=== PATIENT | female | born 1995 | race Caucasian/White ===

== ENCOUNTER → 2019-03-11 | Outpatient (CLI) | payer OTHER | LOC: LAB.O 10:12 | PROVIDERS: ATTEND Registered Nurse General Practice | DX: K92.0 Hematemesis (principal) ==

== ENCOUNTER → 2019-03-12 | Outpatient (CLI) | payer OTHER ==
--- NOTE | 2019-03-12 14:00 | CT ---
EXAM DESCRIPTION: Abdomen/Pelvis w/wo Contrast CLINICAL HISTORY: 23 years Female, EPIGASTRIC PAIN COMPARISON: None. TECHNIQUE: CT of the abdomen and pelvis acquired without and with IV contrast material. Coronal and sagittal reformations provided. This exam was performed according to our departmental dose-optimization program, which includes automated exposure control, adjustment of the mA and/or kV according to patient size and/or use of iterative reconstruction technique. FINDINGS: Lung bases: Clear. Solid Organs: Unremarkable liver, spleen, pancreas, gallbladder, adrenal glands, and kidneys. GI tract: There is mild mucosal thickening and wall edema of the gastric body and pylorus measuring up to 15 mm in thickness. No perigastric inflammation. No small bowel obstruction. Moderate stool in the proximal colon. Normal appendix. Vascular: Normal. Musculoskeletal and soft tissues: No acute fracture or aggressive appearing osseous lesion. Tiny fat-containing umbilical hernia. Urinary bladder: Normal. Uterus and adnexa: Intrauterine device in place within the endometrial medial fundus. Other: Small amount of simple appearing pelvic fluid in the cul-de-sac, likely physiologic. Innumerable mesenteric lymph nodes centered about the mesenteric root are likely reactive. IMPRESSION: 1. Findings the stomach may represent acute gastritis. Consider GI consultation. Further evaluation with upper endoscopy may be obtained to further evaluate if there is concern for neoplasm. Of note, there is no intra-abdominal free air to suggest perforation. Electronically signed by: Gokul Eid MD 03/12/2019 1:59 PM PUBLICITY MANAGER
== END ==
LOC: CT 09:21
PROVIDERS: ATTEND Registered Nurse General Practice
DX: R10.13 Epigastric pain (principal)